=== PATIENT | male | born 1995 | race Caucasian/White ===

== ENCOUNTER 2017-02-19 00:11 | Emergency (ER) | payer SELFPAY ==
[2017-02-19] MEDS ORDERED: NS 1,000 ML IV ONE ×2 (00:15→02:46)
--- NOTE | 2017-02-19 00:19 | EDPHY ---
H & P HPI/ROS: HPI CHIEF COMPLAINT: Marijuana and alcohol intoxication, sleepy HISTORY OF PRESENT ILLNESS: This patient is a 21-year-old male who presents emergency room by EMS after he got very sleepy and nauseous and vomited once at home after he ingested marijuana and alcohol. He presents emergency room very sleepy. He states that he feels very high and nauseous. Denies any trauma. He did recently break his left hip and had surgery. He is still in a wheelchair because of this. Upon arrival to the emergency room is noted be sleepy denies any complaints except for stating He does state he feels slightly nauseous. Patient reports to me that he does take blood thinners due to his recent hip fracture. Denies headache. Past Medical History: Denies significant medical history Past Surgical History: Left hip surgery. Social History: Marijuana use tonight, alcohol use. Family History: Noncontributory ROS REVIEW OF SYSTEMS: A comprehensive 10 point review of systems is otherwise negative aside from elements mentioned in the history of present illness. Exam Constitutional extremely sleepy, appears intoxicated, triage nursing summary reviewed, vital signs reviewed, awake/alert. Eyes normal conjunctivae and sclera, EOMI, PERRLA. HENT normal inspection, atraumatic, moist mucus membranes, no epistaxis, neck supple/ no meningismus, no raccoon eyes. Respiratory clear to auscultation bilaterally, normal breath sounds, no respiratory distress, no wheezing. Cardiovascular rate normal, regular rhythm, no murmur, no edema, distal pulses normal. Gastrointestinal soft, non-tender, no rebound, no guarding, normal bowel sounds, no distension, no pulsatile mass. Genitourinary no CVA tenderness. Musculoskeletal no midline vertebral tenderness, full range of motion, no calf swelling, no tenderness of extremities, no meningismus, good pulses, neurovascularly intact. Skin pink, warm, & dry, no rash, skin atraumatic. Neurologic sleepy, moves all 4 extremities equally, motor intact, sensory intact, CN II-XII intact, normal cerebellar, normal vision, normal speech. Psychiatric normal mood/affect. Heme/Lymph/Immune no lymphadenopathy. Differential Diagnosis: Includes but is not limited to in a particular order acute intoxication of marijuana, alcohol intoxication, drug intoxication, intracranial bleed. Medical Decision Making: Plan for this patient IV establishment with fluid bolus, check basic blood work, check alcohol level, check drug screen, CT scan head without contrast due to altered mental status and extreme sleepiness. Re-evaluation: CT scan head without contrast called to me by Dr. Arteaga negative for acute bleed. 0316: Patient is well-hydrated status post 2 L normal saline. He does tell me he feels much better. Blood work is reassuring. He did not provide us a urine sample for a drug screen. He admits to doing marijuana. Vital signs have been stable. Blood work has been reviewed. He is well- hydrated feeling much better. He uses a walker to ambulate given his recent left hip fracture. Will allowed to go home with his brother. Return precautions discussed with him. Recommend refraining from doing drugs. Source: Patient, EMS Constitutional: Initial Vital Signs Temperature (C) 36.5 C 02/19/17 00:19 Heart Rate 100 02/19/17 00:19 Respiratory Rate 16 02/19/17 00:19 Blood Pressure 140/88 H 02/19/17 00:19 O2 Sat (%) 99 02/19/17 00:19 O2 Delivery Mode Room Air Allergies/Adverse Reactions: No Known Allergies Allergy (Unverified 02/19/17 00:21) Home Medications: Medication Instructions Recorded Unk Blood Thinner 02/19/17 Medical Decision Making - Data Points Laboratory Results: Laboratory Results 02/19/17 00:21 02/19/17 00:21 02/19/17 02/19/17 02/19/17 00:42 00:21 00:21 WBC 7.13 10^3/uL 10^3/uL (3.80-9.50) RBC 4.89 10^6/uL 10^6/uL (4.40-6.38) Hgb 14.5 g/dL g/dL (13.7-17.5) Hct 43.6 % % (40.0-51.0) MCV 89.2 fL fL (81.5-99.8) MCH 29.7 pg pg (27.9-34.1) MCHC 33.3 g/dL g/dL (32.4-36.7) RDW 13.2 % % (11.5-15.2) Plt Count 268 10^3/uL 10^3/uL (150-400) MPV 10.0 fL fL (8.7-11.7) Neut % (Auto) 62.6 % % (39.3-74.2) Lymph % (Auto) 24.0 % % (15.0-45.0) Taylor % (Auto) 10.5 % % (4.5-13.0) Eos % (Auto) 1.3 % % (0.6-7.6) Baso % (Auto) 1.0 % % (0.3-1.7) Nucleat RBC Rel Count 0.0 % % (0.0-0.2) Absolute Neuts (auto) 4.47 10^3/uL 10^3/uL (1.70-6.50) Absolute Lymphs (auto) 1.71 10^3/uL 10^3/uL (1.00-3.00) Absolute Monos (auto) 0.75 10^3/uL 10^3/uL (0.30-0.80) Absolute Eos (auto) 0.09 10^3/uL 10^3/uL (0.03-0.40) Absolute Basos (auto) 0.07 10^3/uL 10^3/uL (0.02-0.10) Absolute Nucleated RBC 0.00 10^3/uL 10^3/uL (0-0.01) Immature Gran % 0.6 % % (0.0-1.1) Immature Gran # 0.04 10^3/uL 10^3/uL (0.00-0.10) PT 14.3 SEC SEC (12.0-15.0) INR 1.09 (0.83-1.16) APTT 28.5 SEC SEC (23.0-38.0) Sodium 144 mEq/L mEq/L (134-144) Potassium 3.9 mEq/L mEq/L (3.5-5.2) Chloride 103 mEq/L mEq/L (97-110) Carbon Dioxide 22 mEq/l mEq/l (22-31) Anion Gap 19 mEq/L H mEq/L (8-16) BUN 12 mg/dL mg/dL (7-23) Creatinine 0.9 mg/dL mg/dL (0.7-1.3) Estimated GFR > 60 Glucose 146 mg/dL H mg/dL (70-100) Calcium 9.6 mg/dL mg/dL (8.5-10.4) Ethyl Alcohol < 10 mg/dL mg/dL (0-10) Medications Given: Discontinued Medications Sodium Chloride (Ns) 1,000 mls @ 0 mls/hr IV EDNOW ONE; Wide Open PRN Reason: Protocol Stop: 02/19/17 00:16 Last Admin: 02/19/17 00:44 Dose: 1,000 mls Sodium Chloride (Ns) 1,000 mls @ 0 mls/hr IV ONCE ONE PRN Reason: Wide Open Stop: 02/19/17 02:47 Last Admin: 02/19/17 02:49 Dose: 1,000 mls Departure - Departure Disposition: Home, Routine, Self-Care Clinical Impression: Marijuana abuse Condition: Good Instructions: Cannabis Abuse (ED) Referrals: Patient,NotPresent [Unknown] - As per Instructions
[2017-02-19 00:22] VITALS: TEMP 97.7
[2017-02-19 00:32] LABS: PLATELET COUNT 268 10^3/uL (150-400)
[2017-02-19 01:07] LABS: INR 1.09 (0.83-1.16); PROTIME(PATIENT) 14.3 SEC (12.0-15.0)
[2017-02-19 04:33] VITALS: BP 97/54; PULSE 78; RESP 16; O2SAT 96
== END 2017-02-19 04:33 | disposition home or self-care (01) ==
DX: F12.10 Cannabis abuse, uncomplicated (principal); E86.9 Volume depletion, unspecified
CPT/HCPCS: G0480